=== PATIENT | male | born 1975 | race Caucasian/White ===

== ENCOUNTER 2023-03-09 15:25 | Inpatient (IN) | payer BC ==
[~2023-03-09] VITALS: Ht 182.9 cm; Wt 56.0 kg
[2023-03-09 15:40] VITALS: BP 147/93
[2023-03-09 16:28] LABS: BASO # 0.1 10*3/uL (0.0-0.1); EOS # 0.1 10*3/uL (0.0-0.4); EOS % 1.4 % (1.0-4.0); HEMATOCRIT 41.8 % (42.0-52.0); LYMPH # 1.8 10*3/uL (1.3-4.4); LYMPH % 37.2 % (27.0-41.0); MEAN CELL VOLUME 98.4 fl (80.0-94.0); MEAN CORPUSCULAR HGB 35.1 pg (27.0-31.0); MEAN CORPUSCULAR HGB CONC 35.6 g/dl (33.0-37.0); MEAN PLATELET VOLUME 9.3 fl (9.6-12.3); MONO # 0.5 10*3/uL (0.1-1.0); MONO % 10.2 % (3.0-9.0); NEUT # 2.5 10*3/uL (2.3-7.9); NEUT % 49.8 % (47.0-73.0); PLATELET COUNT AUTOMATED 146 10*3/uL (130-400); RED BLOOD COUNT 4.25 10*6/uL (4.50-5.90); RED CELL DISTRI WIDTH 13.3 % (0-14.5); WHITE BLOOD COUNT 4.9 10*3/uL (4.8-10.8)
[2023-03-09 16:57] LABS: ALKALINE PHOSPHATASE 68 U/L (46-116); BUN 9 mg/dl (9-23); CHLORIDE 105 mmol/L (98-107); ETHYL ALCOHOL 283.5 mg/dl (<3); POTASSIUM 4.1 mmol/L (3.4-5.1); SGPT/ALT 137 U/L (10-49); TOTAL PROTEIN 7.3 gm/dL (6.0-8.0)
[2023-03-09] MEDS ORDERED: ASPIRIN ADULT L81 M1 PO (16:59)
[2023-03-09] MEDS ORDERED: LISINOPRIL5 MG PO (17:00)
[2023-03-09] MEDS ORDERED: PANTOPRAZOLE SO40 MG PO (17:01)
[2023-03-09] MEDS ORDERED: METOPROLOL SUCC25 M2 PO (17:01)
[2023-03-09] MEDS ORDERED: VITAMIN D325 MCG PO (17:02)
[2023-03-09] MEDS ORDERED: PROTEIN POWDER480 GM PO (17:03)
[2023-03-09] MEDS ORDERED: VITAMIN C500 M8 PO (17:03)
[2023-03-09 18:16] LABS: URINE AMPHETAMINES Negative (1000ng/ml); URINE BARBITURATES Negative (200ng/ml); URINE BENZODIAZEPINES Negative (200ng/ml); URINE CANNABINOIDS (THC) Positive (50ng/ml); URINE COCAINE Negative (300ng/ml); URINE METHADONE Negative (300ng/ml); URINE OPIATES Negative (300ng/ml); URINE PHENCYCLIDINE Negative (25ng/ml)
[2023-03-09 20:00] VITALS: BP 158/105
[2023-03-10] VITALS: BP 127/78
[2023-03-10 08:00] VITALS: BP 148/95
[2023-03-10 10:07] LABS: BASO % 0.6 % (0.0-1.0); EOS # 0.1 10*3/uL (0.0-0.4); EOS % 1.4 % (1.0-4.0); HEMATOCRIT 40.1 % (42.0-52.0); LYMPH # 0.8 10*3/uL (1.3-4.4); LYMPH % 23.9 % (27.0-41.0); MEAN CELL VOLUME 98.3 fl (80.0-94.0); MEAN CORPUSCULAR HGB CONC 35.7 g/dl (33.0-37.0); MEAN PLATELET VOLUME 9.5 fl (9.6-12.3); MONO # 0.4 10*3/uL (0.1-1.0); MONO % 11.5 % (3.0-9.0); NEUT # 2.2 10*3/uL (2.3-7.9); PLATELET COUNT AUTOMATED 107 10*3/uL (130-400); RED BLOOD COUNT 4.08 10*6/uL (4.50-5.90); RED CELL DISTRI WIDTH 13.2 % (0-14.5); WHITE BLOOD COUNT 3.5 10*3/uL (4.8-10.8)
[2023-03-10 12:00] VITALS: BP 161/87
[2023-03-10 16:00] VITALS: BP 140/96
[2023-03-10 20:00] VITALS: BP 162/91
[2023-03-11] VITALS: BP 129/74
[2023-03-11 08:00] VITALS: BP 147/88
[2023-03-11 08:15] LABS: ALKALINE PHOSPHATASE 59 U/L (46-116); BUN 11 mg/dl (9-23); CHLORIDE 106 mmol/L (98-107); SGPT/ALT 105 U/L (10-49); TOTAL PROTEIN 6.3 gm/dL (6.0-8.0)
[2023-03-11 12:00] VITALS: BP 149/84
[2023-03-11 16:00] VITALS: BP 129/82
[2023-03-11 20:00] VITALS: BP 138/83
[2023-03-12] VITALS: BP 129/78
[2023-03-12 08:00] VITALS: BP 150/90
[2023-03-12 12:00] VITALS: BP 134/78
== END 2023-03-12 13:24 | disposition home or self-care (01) | DRG 897 ==
LOC: 5E 15:25
PROVIDERS: Internal Medicine; ADMIT Internal Medicine; ATTEND Internal Medicine
DX: F10.139 Alcohol abuse with withdrawal, unspecified (principal); K21.9 Gastro-esophageal reflux disease without esophagitis; I10 Essential (primary) hypertension; E78.5 Hyperlipidemia, unspecified; R40.1 Stupor; F41.9 Anxiety disorder, unspecified; Z88.1 Allergy status to other antibiotic agents; Z88.2 Allergy status to sulfonamides; Y90.8 Blood alcohol level of 240 mg/100 ml or more